=== PATIENT | male | born 1955 | race Caucasian/White ===

== ENCOUNTER 2021-02-28 19:47 | Emergency (ER) | payer SELFPAY ==
[2021-02-28 19:47] VITALS: RESP 18; TEMP 36.7; O2SAT 100; BMI 17.2
[2021-02-28 21:25] VITALS: BP 00/00; PULSE 0; RESP 0; TEMP -17.7; TEMP 0; O2SAT 0
== END 2021-02-28 21:28 | disposition left against medical advice (07) ==
LOC: ER 21:19
PROVIDERS: Emergency Provider Nurse Practitioner Family; PCP Family Medicine
DX: Z53.21 Procedure and treatment not carried out due to patient leaving prior to being seen by health care provider (principal); K40.90 Unilateral inguinal hernia, without obstruction or gangrene, not specified as recurrent
CPT/HCPCS: 99211

== ENCOUNTER 2022-02-22 10:02 | Emergency (ER) | payer OTHER, SELFPAY ==
--- NOTE | 2022-02-22 10:30 | XR_ITS ---
PROCEDURE INFORMATION: Exam: XR Chest Exam date and time: 02/22/2022 10:31 AM Age: 66 years old Clinical indication: Cough; Additional info: Cough longstanding TECHNIQUE: Imaging protocol: XR of the chest. Views: 2 views. COMPARISON: No relevant prior studies available. FINDINGS: Lungs: Hyperlucent changes are demonstrated. Increase in the lung volumes is demonstrated. Pleural spaces: Unremarkable. No pleural effusion. No pneumothorax. Heart/Mediastinum: Unremarkable. No cardiomegaly. Diaphragm: There is flattening of the hemidiaphragms. Bones/joints: Osteopenia. Mild compression fracture deformity L1, age indeterminate. IMPRESSION: 1. Findings compatible with chronic obstructive pulmonary disease. 2. No evidence of acute cardiopulmonary disease.
--- NOTE | 2022-02-22 10:30 | HMH.EDUTC ---
[facility] [place]: Fatigue Qualifiers: Fatigue type: unspecified Qualified Code(s): R53.83 - Other fatigue Disposition: Home, Self-Care Condition on Discharge: Good Instructions: DI for Fatigue, DI for Weight Loss Additional Instructions: Drink plenty of fluids. Take tylenol or ibuprofen for pain or fever. Take the medications as directed. Follow up with your regular doctor. GO TO THE ER FOR ANY WORSENING SYMPTOMS You have to get a primary care physician to follow up with regarding your symptoms. We are giving you a list of pcp's that are taking new patients. Prescriptions: Ondansetron [Zofran 4mg ODT] 4 mg PO Q8HP PRN #20 tab PRN Reason: Nausea Transmission Status: Pending to [facility] Referrals: Provider,Referral, [Primary Care Provider] - Time of Disposition: 11:06 Medical Decision Making - Medical Records Medical records reviewed: No: I reviewed the patient's medical records. - Cesar Inquiry Pt receiving controlled substance: No Vital Signs: 02/22/22 10:31 Temperature 99.9 F H Temperature Source Oral Pulse Rate [Left Radial] 99 H Respiratory Rate 19 Blood Pressure [Right Arm] 104/67 L Blood Pressure Mean [Right Arm] 79 02 Sat by Pulse Oximetry 96 - Lab Data Lab results reviewed: Yes: I reviewed the patient's lab results. Orders (Tests/Meds): ORDERS Category Date Time Status XR chest 2V Stat Exams 02/22/22 10:30 Taken Complete Blood Count Auto Diff Stat Lab 02/22/22 10:36 Ordered Comprehensive Metabolic Panel Stat Lab 02/22/22 10:36 Ordered Free T4 (Free Thyroxine) Stat Lab 02/22/22 10:36 Ordered Thyroid Stimulating Hormone Stat Lab 02/22/22 10:36 [place] [facility] [place] - General Stated complaint: weight loss, fatigue Time Seen by Provider: 02/22/22 10:30 - History of Present Illness Provider Complaint: He states that over the past 3 months he has had worsening fatigue and he has had weight loss. He is unable to quanitfy the amount of weight he has lost. He denies any pain. He has decreased appetite. He denies any n/v/d. - Related Data Previous Rx's Medication Instructions Recorded triamcinolone acetonide 0.5 % 1 applic TOPICAL BID #15 g 09/19/21 topical cream Ondansetron [Zofran 4mg ODT] 4 mg PO Q8HP PRN #20 tab 02/22/22 Allergies Allergy/AdvReac Type Severity Reaction Status Date / Time No Known Allergies Allergy Verified 09/19/21 15:35 [facility] History - Hepatitis A Screen Attestation statement:: This patient has been screened for Hepatitis A risk factors. I have reviewed the patient's past medical history: Yes Other Surgeries: Yes: No Previous Surgery Amputation: No Fractures: No - Social History Smoking Status: Never smoker Alcohol Intake: current Alcohol Intake Frequency:: holidays/special occasions only Occupational Status: employed Family Hx:: Cancer ROS Obtained: Yes All systems reviewed & no additional complaints - Constitutional Constitutional: Denies chills, Denies fever(s), Reports poor appetite, Reports malaise - Eyes Eyes: Denies eye discharge - ENT Ears, Nose, Mouth, and Throat: Reports as per HPI - Cardiovascular Cardiovascular: Denies chest pain - Respiratory Respiratory: Denies chest congestion, Reports cough, Denies dyspnea, Denies stridor, Denies wheezing - Gastrointestinal Gastrointestingal: Reports: nausea. Denies: abdominal pain, cramping, diarrhea, vomiting blood, bright red blood in stools, black, tarry stools, vomiting - Genitourinary Male Genitourinary: Denies difficulty urinating, Denies urinary frequency, Denies urinary hesitancy - Musculoskeletal Musculoskeletal: Denies joint pain - Integumentary/Breasts Skin/Breast: Denies rash Physical Exam - General General appearance: alert, in no apparent distress - Head Head exam: atraumatic, normocephalic, normal inspection - Eye Eye exam: Present: normal appearance, PERRL, EOMI -
[2022-02-22 10:31] VITALS: BP 104/67; PULSE 99; RESP 19; TEMP 37.7; O2SAT 96; BMI 18.4
[2022-02-22 11:09] VITALS: BP 104/67; PULSE 99; RESP 19; TEMP 37.7
[2022-02-22 11:20] LABS: Basophils # 0.1 K/mm3 (0-0.2); Basophils % 1.2 % (0.1-2.0); Eosinophils # 0.5 K/mm3 (0.0-0.4); Eosinophils % 9.2 % (0.1-12.0); Hematocrit 36.9 % (42.0-52.0); Hemoglobin 12.2 g/dL (14.1-18.0); Lymphocytes # 1.2 K/mm3 (0.7-4.5); Lymphocytes % 21.9 % (10-50); Mean Corpuscular HGB Conc 33.2 g/dL (31.8-35.4); Mean Corpuscular Hemoglobin 31.8 pg (27.0-31.2); Mean Corpuscular Volume 95.7 fl (80-94); Mean Platelet Volume 9.5 fl (7.4-10.4); Monocytes # 3.2 K/mm3 (0.1-1.0); Monocytes % 59.8 % (1.7-9.3); Neutrophils # 0.4 K/mm3 (1.8-7.8); Platelet Count 283 K/mm3 (142-424); Red Blood Count 3.85 M/mm3 (4.60-6.20); Red Cell Distribution Width 15.3 % (11.5-17.5); White Blood Count 5.4 K/mm3 (4.8-10.8)
[2022-02-22 11:26] LABS: Alanine Aminotransferase 18 U/L (12-78); Albumin Level 3.6 g/dl (3.5-5.0); Albumin/Globulin Ratio 1.1 (1.1-1.8); Alkaline Phosphatase 52 U/L (38-126); Anion Gap 10.9 mEq/L (5-15); Aspartate Amino Transferase 32 U/L (17-59); Bilirubin,Total 0.3 mg/dl (0.2-1.3); Blood Urea Nitrogen 15 mg/dl (9-20); Calcium 8.5 mg/dl (8.4-10.2); Carbon Dioxide 30 mmol/L (22.0-30.0); Chloride 102 mmol/L (98-107); Creatinine Clearance Estimated 58 mL/min (50-200); Estimated Glomerular Filt Rate 84 ml/min (>60); GFR (African American) 102 ML/MIN (>60); Globulin 3.3 g/dL (1.3-3.2); Glucose 97 mg/dl (74-100); Potassium 3.9 mmoL/L (3.5-5.1); Sodium 139 mmol/L (136-145); Total Protein,Serum 6.9 g/dl (6.3-8.2)
[2022-02-22 11:44] LABS: Neutrophils % 7.8 % (37.0-80.0)
[2022-02-22 11:46] LABS: MANUAL DIFFERENTIAL MANUAL DIFFERENTIAL (MANUAL DIFF)
[2022-02-22 11:56] LABS: Thyroid Stimulating Hormone 4.33 uIU/mL (0.465-4.68)
[2022-02-22 12:00] LABS: Lymphocytes % 8 % (10-50); Monocytes % 5 % (2-9); Neutrophils % 87 % (42-76); Total Cells Counted 100
[2022-02-22 12:01] LABS: Platelet Estimate Normal
[2022-02-22 12:09] LABS: Burr Cells 2+; Hypochromasia 2+
[2022-02-22 12:10] LABS: Poikilocytosis 1+
[2022-02-22 12:17] LABS: Free T4 (Free Thyroxine) 0.94 ng/dl (0.78-2.19)
[2022-02-22 12:28] LABS: Apearance,Urine Clear (Clear); Color,Urine Dark Yellow (Yellow); PH,Urine 5.5 (5.0-8.5); Specific Gravity, Urine 1.025 (1.005-1.030)
[2022-02-22 12:29] LABS: Bilirubin,Urine Negative (Negative); Blood, Urine Negative (Negative); Glucose,Urine (UA) Negative (Negative); Ketones,Urine TRACE (Negative); Protein,Urine 1+ (Negative); UTC Leukocyte Esterase,Urine Negative (Negative); UTC Nitrate,Urine Negative (Negative); Urobilinogen,Urine 1 EU/dl (0.2)
== END 2022-02-22 11:28 | disposition home or self-care (01) ==
PROVIDERS: Emergency Provider Nurse Practitioner Family
DX: R53.83 Other fatigue (principal); R63.4 Abnormal weight loss; Z68.1 Body mass index [BMI] 19.9 or less, adult
CPT/HCPCS: 71046; 80053; 81003; 84439; 84443; 85007; 85025; 99213; G0463

== ENCOUNTER → 2022-02-27 21:53 | Outpatient (CLI) | payer OTHER, SELFPAY | PROVIDERS: Visit Provider Nurse Practitioner Family | DX: R05.9 Cough, unspecified (principal); R53.83 Other fatigue ==

== ENCOUNTER 2022-03-06 12:03 | Emergency (ER) | payer OTHER, SELFPAY ==
[2022-03-06 12:25] VITALS: BP 120/70; PULSE 90; RESP 19; TEMP 36.7; O2SAT 98; BMI 15.7
[2022-03-06 12:27] VITALS: BP 106/77; PULSE 93; RESP 16; TEMP 37.4; O2SAT 96; BMI 16.7
--- NOTE | 2022-03-06 12:39 | HMH.EDUTC ---
[facility] Disposition Clinical Impression: Oral alex Disposition: Home, Self-Care Condition on Discharge: Good Instructions: DI for Thrush, Nystatin, Thrush-Adult Additional Instructions: Swish, gargle and spit as advised Follow up with your Family Doctor for further evaluation if no improvement or any worsening of symptoms Return if needed Straight to ER if any life threatening symptoms Prescriptions: Nystatin [Nystatin Susp 500,000 Units/5mL Udc] 5 ml PO QID 14 Days #280 ml Transmission Status: Pending to [facility] Referrals: Tereso Hays MD [Primary Care Provider] - As needed Time of Disposition: 12:49 Medical Decision Making - Cesar Inquiry Pt receiving controlled substance: No Cesar was queried for this patient: No Vital Signs: 03/06/22 12:25 03/06/22 12:27 03/06/22 12:46 Temperature 98.1 F 99.3 F 99.3 F Temperature Source Oral Oral Pulse Rate 93 H Pulse Rate [Left Radial] 90 93 H Respiratory Rate 19 16 16 Blood Pressure 106/77 L Blood Pressure [Left Arm] 120/70 106/77 L Blood Pressure Mean [Left Arm] 86 86 Blood Pressure Source [Left Arm] Automatic Cuff Automatic Cuff Blood Pressure Position [Left Arm] Sitting Sitting 02 Sat by Pulse Oximetry 98 96 Oxygen Delivery Method Room Air Room Air [facility] HPI - General Stated complaint: blisters in mouth Time Seen by Provider: 03/06/22 12:39 Mode of Arrival: Ambulatory Source of Information: Patient Limitations: No Limitations Description of Symptoms (Recalled from Triage Doc. by RN): Pt reports blisters in mouth and on tongue for approx 2 days. - History of Present Illness Provider Complaint: Patient states that he noticed for the last 2-3 days he has white blisters in his mouth, all over his tongue and in his jaw areas States that he thinks it is yeast but he googled it and said he may need antifungals so he came in - Related Data Previous Rx's Medication Instructions Recorded triamcinolone acetonide 0.5 % 1 applic TOPICAL BID #15 g 09/19/21 topical cream Ondansetron [Zofran 4mg ODT] 4 mg PO Q8HP PRN #20 tab 02/22/22 Nystatin [Nystatin Susp 500,000 5 ml PO QID 14 Days #280 ml 03/06/22 Units/5mL Udc] Allergies Allergy/AdvReac Type Severity Reaction Status Date / Time No Known Allergies Allergy Verified 09/19/21 15:35 - Worker's Comp Is this a Worker's Comp case?: No [facility] History - Hepatitis A Screen Attestation statement:: This patient has been screened for Hepatitis A risk factors. I have reviewed the patient's past medical history: Yes Other Surgeries: Yes: No Previous Surgery Amputation: No Fractures: No - Social History Smoking Status: Never smoker Alcohol Intake: current Alcohol Intake Frequency:: holidays/special occasions only Occupational Status: employed Family Hx:: Cancer ROS Obtained: Yes All systems reviewed & no additional complaints, Yes Systems reviewed as appropriate & no additional complaints - Constitutional Constitutional: Reports system reviewed and no additional complaints, except as docu - ENT Ears, Nose, Mouth, and Throat: Reports system reviewed and no additional complaints, except as docu, Reports other Comments: white patchy blisters in mouth, on tongue, lip and jaw Physical Exam - General General appearance: alert, in no apparent distress - Expanded ENT Exam Mouth exam: Present: other (white patchy like areas noted on tongue, both jaws and bottom lip like that seen with Oral Candidia that would not removed with tongue blade) - Respiratory Respiratory exam: Present: normal lung sounds bilaterally. Absent: respiratory distress - Cardiovascular Cardiovascular exam: Present: regular rate, normal rhythm. Absent: JVD - Abdominal Exam Abdominal exam: Present: soft, normal bowel sounds. Absent: distention, tenderness, guarding - Neurological Exam Neurological exam: Present: alert, oriented X3
[2022-03-06 12:46] VITALS: BP 106/77; PULSE 93; RESP 16; TEMP 37.4; O2SAT 96
== END 2022-03-06 12:56 | disposition home or self-care (01) ==
LOC: ER 12:28 → UTC 12:28
PROVIDERS: Emergency Provider Nurse Practitioner; PCP Family Medicine
DX: B37.0 Candidal stomatitis (principal)
CPT/HCPCS: 99212; G0463

== ENCOUNTER → 2022-03-24 11:07 | Outpatient (CLI) | payer SELFPAY ==
[2022-03-24 12:00] LABS: Basophils % 0.4 % (0.1-2.0); Eosinophils # 0.4 K/mm3 (0.0-0.4); Hematocrit 35.3 % (42.0-52.0); Lymphocytes # 0.7 K/mm3 (0.7-4.5); Lymphocytes % 18.8 % (10-50); Mean Corpuscular HGB Conc 33.5 g/dL (31.8-35.4); Mean Corpuscular Volume 95.6 fl (80-94); Mean Platelet Volume 9.1 fl (7.4-10.4); Monocytes # 0.3 K/mm3 (0.1-1.0); Monocytes % 6.6 % (1.7-9.3); Neutrophils # 2.5 K/mm3 (1.8-7.8); Neutrophils % 63.3 % (37.0-80.0); Platelet Count 338 K/mm3 (142-424); Red Blood Count 3.69 M/mm3 (4.60-6.20); Red Cell Distribution Width 15.9 % (11.5-17.5)
[2022-03-24 12:12] LABS: Hemoglobin A1C 6.2 % (4.0-6.0)
[2022-03-24 12:31] LABS: Alanine Aminotransferase 49 U/L (12-78); Albumin Level 2.9 g/dl (3.5-5.0); Albumin/Globulin Ratio 0.9 (1.1-1.8); Alkaline Phosphatase 71 U/L (38-126); Anion Gap 7.6 mEq/L (5-15); Aspartate Amino Transferase 66 U/L (17-59); Blood Urea Nitrogen 25 mg/dl (9-20); Calcium 9.5 mg/dl (8.4-10.2); Carbon Dioxide 33 mmol/L (22.0-30.0); Chloride 103 mmol/L (98-107); Estimated Glomerular Filt Rate 75 ml/min (>60); GFR (African American) 90 ML/MIN (>60); Globulin 3.4 g/dL (1.3-3.2); Glucose 81 mg/dl (74-100); Potassium 4.6 mmoL/L (3.5-5.1); Sodium 139 mmol/L (136-145); Total Protein,Serum 6.3 g/dl (6.3-8.2)
[2022-03-24 12:33] LABS: Bilirubin,Total < 0.1 mg/dl (0.2-1.3)
[2022-03-24 12:35] LABS: Iron 54 ug/dL (49-181)
[2022-03-24 12:39] LABS: Erythrocyte Sedimentation Rate 93 mm/hr (0-20)
[2022-03-24 12:44] LABS: Hemoglobin 11.8 g/dL (14.1-18.0); Total Iron Binding Capacity 208 ug/dL (261-462); White Blood Count 3.9 K/mm3 (4.8-10.8)
[2022-03-24 13:06] LABS: Ferritin 887 ng/ml (17.9-464)
[2022-03-24 19:07] LABS: Free T4 (Free Thyroxine) 1.09 ng/dl (0.78-2.19)
[2022-03-25 09:30] LABS: Hepatitis B Core Antibody IgM Negative (Negative); Hepatitis B Surface Antigen Negative (Negative); Hepatitis C Antibody <0.1 s/co ratio (0.0-0.9)
[2022-03-26 11:13] LABS: Peripheral Smear Review Scanned Result
[2022-03-26 15:22] LABS: HIV 1 Ab Reactive (Non Reactive); HIV 2 Ab Non Reactive (Non Reactive); HIV Screen 4th Generation wRfx Preliminary Reactive (Non Reactive); HIV-1 Ab CHG YES; HIV-2 Ab CHG YES; Interpretation: HIV-1 Positive (.)
== END ==
PROVIDERS: PCP Family Medicine; Visit Provider Family Medicine
DX: R63.4 Abnormal weight loss (principal); Z11.4 Encounter for screening for human immunodeficiency virus [HIV]; Z68.1 Body mass index [BMI] 19.9 or less, adult
CPT/HCPCS: 36415; 80053; 82728; 83036; 83540; 83550; 84439; 84443; 85025; 85651; 86701; 86702; 86703; 86704; 87340; 87380; G0432

== ENCOUNTER → 2022-06-09 08:21 | Outpatient (REF) | payer MEDICARE, SELFPAY ==
[2022-06-09 08:50] LABS: Basophils % 0.3 % (0.1-2.0); Eosinophils % 0.1 % (0.1-12.0); Hematocrit 32.4 % (42.0-52.0); Hemoglobin 9.8 g/dL (14.1-18.0); Lymphocytes # 1.5 K/mm3 (0.7-4.5); Lymphocytes % 17.9 % (10-50); Mean Corpuscular HGB Conc 30.3 g/dL (31.8-35.4); Mean Corpuscular Hemoglobin 28.4 pg (27.0-31.2); Mean Corpuscular Volume 93.6 fl (80-94); Mean Platelet Volume 10.4 fl (7.4-10.4); Monocytes # 0.9 K/mm3 (0.1-1.0); Monocytes % 11.2 % (1.7-9.3); Neutrophils # 5.9 K/mm3 (1.8-7.8); Neutrophils % 70.5 % (37.0-80.0); Platelet Count 524 K/mm3 (142-424); Red Blood Count 3.46 M/mm3 (4.60-6.20); Red Cell Distribution Width 15.6 % (11.5-17.5); White Blood Count 8.4 K/mm3 (4.8-10.8)
[2022-06-09 09:23] LABS: Albumin Level 2.5 g/dl (3.5-5.0); Albumin/Globulin Ratio 0.9 (1.1-1.8); Anion Gap 9.7 mEq/L (5-15); Carbon Dioxide 24 mmol/L (22.0-30.0); Chloride 99 mmol/L (98-107); Estimated Glomerular Filt Rate 215 ml/min (>60); GFR (African American) 260 ML/MIN (>60); Globulin 2.9 g/dL (1.3-3.2); Glucose 128 mg/dl (74-100); Potassium 4.7 mmoL/L (3.5-5.1); Sodium 128 mmol/L (136-145); Total Protein,Serum 5.4 g/dl (6.3-8.2)
[2022-06-09 09:24] LABS: Alanine Aminotransferase 66 U/L (12-78); Alkaline Phosphatase 92 U/L (38-126); Aspartate Amino Transferase 39 U/L (17-59); Blood Urea Nitrogen 13 mg/dl (9-20)
[2022-06-09 09:33] LABS: Bilirubin,Total < 0.1 mg/dl (0.2-1.3)
[2022-06-11 11:12] LABS: Hep B Core Ab, Total Positive (Negative); Hep B Surface Ab, Qual Reactive (.); Hepatitis B Surface Antigen Negative (Negative)
== END ==
LOC: LAB.DROPOF 08:21
PROVIDERS: Nurse Practitioner Family; Visit Provider Internal Medicine Adolescent Medicine
DX: D64.9 Anemia, unspecified (principal); R76.8 Other specified abnormal immunological findings in serum
CPT/HCPCS: 80053; 85025; 86704; 86706; 87340

== ENCOUNTER → 2022-07-30 10:19 | Outpatient (CLI) | payer MEDICARE, SELFPAY ==
--- NOTE | 2022-07-30 10:25 | FL_ITS ---
FINAL REPORT CLINICAL HISTORY: . feeding tube placement 3:33 fluoto time FINDINGS: Gastrostomy tube evaluation and replacement under fluoroscopy History: Poorly functioning gastrostomy tube Attending radiologist: Dr. Alvarez Physician benefits assistant: Luis Thurston PA-C Procedure: The patient's existing gastrostomy tube was gently injected with water-soluble contrast demonstrating the bulb of the pull PEG to reside within the anterior subcutaneous soft tissues. There is a small tract seen communicating with the stomach. Findings were discussed with Dr. Albarran. Dr. Albarran requested the pull PEG be replaced by a new gastrostomy tube. A superstiff floppy tipped Amplatz guidewire was advanced through the existing gastrostomy tube and into the stomach. The gastrostomy tube was removed over the guidewire. A new 16 Kiswahili gastrostomy tube was advanced over the wire and into the stomach. The securing balloon was insufflated with approximately 10 mL of water. Guidewire was removed. Subsequently, water-soluble contrast was gently injected into the new gastrostomy tube demonstrating the tip to reside within the stomach. No extravasation of contrast was demonstrated during the exam. The patient tolerated the procedure well and there were no immediate complications. Fluoroscopy time: 3 minutes 33 seconds. 7 radiographs were obtained. IMPRESSION: Successful replacement of gastrostomy tube under direct fluoroscopic guidance as detailed above. Films reviewed , interpreted and dictated by Dr. Alvarez. Transcribed by Luis Thurston PA-C. Reviewed, Interpreted and Dictated by Arturo Alvarez III, MD Transcribed by ROBINSON Cooney Authenticated and [facility]
== END ==
PROVIDERS: PCP Family Medicine; Visit Provider Surgery
DX: K94.23 Gastrostomy malfunction (principal)
CPT/HCPCS: 49465; C1769

== ENCOUNTER → 2022-08-06 10:58 | Outpatient (CLI) | payer MEDICARE, SELFPAY ==
[2022-08-06 11:41] LABS: Basophils # 0.1 K/mm3 (0-0.2); Basophils % 1.2 % (0.1-2.0); Eosinophils # 0.1 K/mm3 (0.0-0.4); Eosinophils % 0.7 % (0.1-12.0); Hematocrit 32.4 % (42.0-52.0); Hemoglobin 10.5 g/dL (14.1-18.0); Lymphocytes # 2.2 K/mm3 (0.7-4.5); Lymphocytes % 21.4 % (10-50); Mean Corpuscular HGB Conc 32.4 g/dL (31.8-35.4); Mean Corpuscular Hemoglobin 28.6 pg (27.0-31.2); Mean Corpuscular Volume 88.2 fl (80-94); Mean Platelet Volume 9.3 fl (7.4-10.4); Monocytes # 1.1 K/mm3 (0.1-1.0); Monocytes % 11.1 % (1.7-9.3); Neutrophils # 6.7 K/mm3 (1.8-7.8); Neutrophils % 65.6 % (37.0-80.0); Platelet Count 640 K/mm3 (142-424); Red Blood Count 3.67 M/mm3 (4.60-6.20); Red Cell Distribution Width 18.4 % (11.5-17.5); White Blood Count 10.2 K/mm3 (4.8-10.8)
[2022-08-06 13:05] LABS: Anion Gap 20.6 mEq/L (5-15); Blood Urea Nitrogen 19 mg/dl (9-20); Calcium 9.8 mg/dl (8.4-10.2); Carbon Dioxide 25 mmol/L (22.0-30.0); Chloride 99 mmol/L (98-107); Estimated Glomerular Filt Rate 135 ml/min (>60); GFR (African American) 163 ML/MIN (>60); Glucose 84 mg/dl (74-100); Potassium 4.6 mmoL/L (3.5-5.1); Sodium 140 mmol/L (136-145)
== END ==
PROVIDERS: Nurse Practitioner Family; PCP Internal Medicine Adolescent Medicine; Visit Provider Internal Medicine Adolescent Medicine
DX: K94.23 Gastrostomy malfunction (principal); E87.0 Hyperosmolality and hypernatremia
CPT/HCPCS: 80048; 85025

== ENCOUNTER 2022-08-25 08:58 | Outpatient (RCR) | payer MEDICARE, OTHER, SELFPAY ==
--- NOTE | 2022-08-25 13:44 | HMH.SLDYSPHA ---
Speech & Language Evaluation Speech/Language Dysphagia Evaluation Start: 08/25/22 10:05 Freq: ONCE Status: Active Protocol: Document 08/25/22 13:18 TAMMYHERSON (Rec: 08/25/22 13:42 [email or web address] [id number]) Dysphagia Assess/Goals/Plan Assessment Date of Evaluation: 08/25/22 Evaluation Type Initial Certification Assessment/Problems PMH significant for dysphagia. Previously NPO with PEG. 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 Recommendations PHYSICIAN CERTIFICATION: The specified therapy services are required, authorized, and reviewed every 30 days. Diet Recommendations Normal Liquid Type Recommendations Normal/Thin SL Swallow Guidelines Standard Aspiration Prec., Crush meds as allowed*,Eat at slow rate Crush Meds Crush all meds Dysphagia Swallow Precautions/Strategies Sitting Upright (90 deg),Small Bites and Sips,Alternate Liquids/Solids Additional Consults Recommended Other Comment MBSS Plan Pt/Guardian verbally ack understanding Yes of dx/prognosis/goals Pt/Guardian verbally ack understanding Yes of/consent to tx prog G -code Required No Education Instructions provided BDE assessment results and recommendations discussed with pt, who expressed understanding. Pt/Caregiver able to recall information Able to recall/restate Reinforcement needed No Speech & Language HPI History Present Illness Description of Patient Problem Mr. Scott is a 66 y.o. male presenting to [facility] for an assessment of oropharyngeal swallowing. He was admitted to originally, where he was placed on a vent 2' pneumonia and respiratory failure. He was transferred to [facility] before being D/Pk to [facility] and then to [place]. He has since D/Pk home and is living with his niece. Pt reports having multiple MBSS and FEES, the last of which recommended puree foods and
== END 2022-08-25 08:59 | disposition home or self-care (01) ==
LOC: ST 08:58
PROVIDERS: PCP Internal Medicine Adolescent Medicine; Visit Provider Nurse Practitioner Family
DX: M62.81 Muscle weakness (generalized) (principal); Z76.89 Persons encountering health services in other specified circumstances; R13.10 Dysphagia, unspecified
CPT/HCPCS: 92610

== ENCOUNTER 2022-10-16 11:00 | Outpatient (RCR) | payer MEDICARE, OTHER, SELFPAY ==
--- NOTE | 2022-08-25 11:37 | HMH.OTOPEV ---
OT Inpatient Evaluation Rehab OT Outpatient Eval Start: 08/25/22 11:18 Freq: Status: Active Protocol: Document 08/25/22 11:18 RHODA (Rec: 08/25/22 11:37 [id number]) E-signed By Priyanka Pham, OT Outpatient Therapy Subjective History Subjective History Pt is a 66 year old male who reports to therapy for initial evaluation due to generalized weakness from an extended hospital stay. He reports he suffered from CAP ~ 4 mos ago and was hospitalized and required tracheostomy, mechanical ventialation, and PEG tube placement. He also required rehabilitation stay after discharge from the hospital and has been staying with his niece since discharge from there (~ 1 wk). He was at [facility] for ~3 weeks and then went to [facility] for continued therapy. He has multiple co-morbidities including HIV positive, HEP B positive, CKD. Pt does demonstrate with generalized weakness in bilateral UEs. He has full range of motion at all UE's joints. Pt is right hand dominant. Pt does have a history of R RTC tears, but he still continues to have full range of motion. Pt will continue to be seen in order to address these deficits. 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
--- NOTE | 2022-10-01 10:58 | HMH.RHREAS ---
Rehab Reassessment Rehab OP Re-assessment Start: 10/01/22 09:53 Freq: Status: Active Protocol: Document 10/01/22 09:53 RHODA (Rec: 10/01/22 10:58 RHODA [id number]) E-signed By Priyanka Pham OT Rehab Re-assessment Subjective Subjective I do feel its helping. Objective Objective Notes Pt continues to be seen twice a week in order to address overall generalized weakness. Pt engages in AROM and strengthening exercise for bilateral UE weakness. Pt also engages in bilateral programmer operator numerical control strengthening exercises and fine motor activities. Assessment Progress Assessment Progressing as Expected Assessment Notes Pt is very consistent about attending therapy sessions. Pt demonstrates improvement with overall strength and endurance for bilateral UE's, except at right shoulder. Pt reports prior issues with Right shoulder due to rotator cuff tears. Pt's programmer operator numerical control strength remains the same. Pt is able to tolerate UE exercises for ~20 minutes prior to rest. Current programmer operator numerical control strength Right: 40 lbs Left: 40 lbs Current B/L Shoulder Strength: Right: 3, Left: 3+ Current B/L Elbow Strength: 4- Current B/L Wrist Strength: 4- Patient goals met ST-3 Goals Not Met See below Revised Goals LT-3 Plan Plan Continue with OT plan of care at this time Frequency of Therapy 2x's a week Duration of therapy 4 more weeks Time and Billing Re-Eval Time 11 Re-Eval Billing Units 1 PHYSICIAN CERTIFICATION: I certify the specified therapy services for Hector Scott II are required, authorized, and reviewed every 30 days.
== END 2022-10-16 11:05 | disposition home or self-care (01) ==
LOC: OT 11:00
PROVIDERS: PCP Internal Medicine Adolescent Medicine; Visit Provider Nurse Practitioner Family
DX: M62.81 Muscle weakness (generalized) (principal); Z76.89 Persons encountering health services in other specified circumstances
CPT/HCPCS: 97110; 97164; 97166; 97530

== ENCOUNTER 2022-10-16 11:00 | Outpatient (RCR) | payer MEDICARE, OTHER, SELFPAY ==
--- NOTE | 2022-08-25 10:32 | HMH.PTOPEV ---
PT Outpatient Evaluation Rehab PT Outpatient Evaluation Start: 08/25/22 09:11 Freq: Status: Active Protocol: Document 08/25/22 10:19 MADY (Rec: 08/25/22 10:31 MADY [id number]) E-signed By Avery Chang, PT Outpatient Therapy Subjective History Subjective History This is the initial PT eval for Hector Scott 66 yowm who presents with c/o generalized weakness after extended hospitalization. He reports he suffered from CAP ~ 4 mos ago and was hospitalized and required tracheostomy, mechanical ventialation, and PEG tube placement. He also required rehabilitation stay after discharge from the hospital and has been staying with his niece since discharge from there (~ 1 wk). He has multiple co-morbidities including HIV positive, HEP B positive, CKD. Chief Complaint Weakness Symptoms Relieved By Rest/Positioning Symptoms Aggravated By Physical Activity Prior Functional Limitations None Current Functional Limitations Housework,Recreation Activity, Walking,Stairs,Balance Symptom Description Activity Dependent Level of pain today (0-10) 0 Balance Eval Timed Up and Go Test 1. Is the Timed Up and Go test result > yes or = to 12 seconds? 3. Is the Timed Up and Go Test result < no 12 seconds? Dynamic Gait Index Test Protocol Gait Level Surface Mild Impairment Query Text: Instructions: Walk at your normal speed from here to the next kale (20'). Grading: Kale the lowest category that applies. Change in Gait Speed Normal Query Text: Instructions: Begin walking at your normal pace (for 5'), when I tell you go , walk as fast as you can (for 5'). When I tell you slow , walk as slowly as you can (for 5'). Grading: Kale the lowest category that applies. Gait with Horizontal Head Turns Mild Impairment Query Text: Instructions: Begin walking at your normal pace. When I tell you to look right , keep walking straight, but turn you head to the right. Keep looking to the right unit I tell you look left , then keep walking straight and turn your head to the left. Keep your head to the left until I tell yo
--- NOTE | 2022-10-03 11:21 | HMH.RHREAS ---
Rehab Reassessment Rehab OP Re-assessment Start: 10/03/22 11:15 Freq: Status: Active Protocol: Document 10/03/22 11:16 PHOFRANDY (Rec: 10/03/22 11:20 PHORFLORA [id number]) E-signed By Avery Chang, PT Rehab Re-assessment Subjective Subjective Pt reports feeling much better overall. I took a long walk with my walker outside yesterday and I was tired after I got done, but not as bad as I used to be. Objective Objective Notes MMT: B LE grossly 4+/5 throughout. DGI (Dynamic Gait Index): . Gait: Much improved gait pattern overall with increased speed, but continues to show wide GLENN during ambulation. Assessment Progress Assessment Progressing as Expected Assessment Notes Pt has show significant improvement in overall gait pattern, strength, endurance. He continues to need improved stride length and decreased GLENN suring gait. Beginning to ambulate more without AD short distances. Patient goals met ST,2,3,4 Goals Not Met LT,2,3,4,5,6 Revised Goals none Plan Plan Continue per initial POC. Frequency of Therapy 2-3 x/wk Duration of therapy 4 wks Time and Billing Re-Eval Time 16 Re-Eval Billing Units 1 PHYSICIAN CERTIFICATION: I certify the specified therapy services for Hector Scott II are required, authorized, and reviewed every 30 days.
== END 2022-10-16 11:05 | disposition home or self-care (01) ==
LOC: PT 11:00
PROVIDERS: PCP Internal Medicine Adolescent Medicine; Visit Provider Nurse Practitioner Family
DX: M62.81 Muscle weakness (generalized) (principal); Z76.89 Persons encountering health services in other specified circumstances
CPT/HCPCS: 97110; 97112; 97163; 97164; 97530